=== PATIENT | female | born 1995 ===

== ENCOUNTER 2020-12-14 16:47 | Outpatient (CLI) | payer BC ==
--- NOTE | 2020-12-21 00:25 | XRAY Report ---
PROCEDURE: Chest 2 View X-Ray INDICATIONS: CHEST PAIN, UNSPECIFIED TECHNIQUE: 2 view(s) of the chest. COMPARISON: None. FINDINGS: Surgical changes and devices: None. Lungs and pleura: No pleural effusions or pneumothorax. Lungs are clear. Mediastinum: Mediastinal contours are normal. Heart size is normal. Bones and chest wall: No suspicious bony abnormalities. Soft tissues appear unremarkable. IMPRESSION: No acute pulmonary process. Reviewed by: Alia Garcia MD on 12/21/2020 12:24 AM PDT Approved by: Alia Garcia MD on 12/21/2020 12:24 AM PDT Station ID: [id number]
== END 2020-12-14 23:59 ==
LOC: DI.N 16:47
PROVIDERS: ATTEND Nurse Practitioner
DX: R07.9 Chest pain, unspecified (principal)